=== PATIENT | female | born 1940 | race Caucasian/White ===

== ENCOUNTER 2019-12-24 15:26 | Emergency (ER) | payer MEDICARE ==
[~2019-12-24] VITALS: Ht 149.9 cm; Wt 50.0 kg
[2019-12-24 15:34] VITALS: BP 121/58
[2019-12-24] MEDS ORDERED: HYDROcodone/acetaminophen 10/325mg tab PO ONE (17:10)
[2019-12-24] MEDS ORDERED: HYDR-4353 PO (17:40)
== END 2019-12-24 18:08 | disposition home or self-care (01) ==
LOC: ER 15:27
DX: R07.81 Pleurodynia (principal); R91.8 Other nonspecific abnormal finding of lung field; R63.4 Abnormal weight loss; M54.5 Low back pain; Z85.118 Personal history of other malignant neoplasm of bronchus and lung
CPT/HCPCS: 71101; 72100; 99284